=== PATIENT | male | born 2000 | race Caucasian/White ===

== ENCOUNTER 2018-03-14 12:48 | Emergency (ER) | payer MEDICAID, OTHER ==
[2018-03-14] MEDS: SOD CHLORIDE 0.9% 2,000 ML IV (14:04)
[2018-03-14 14:06] LABS: ADD MAN DIFF? NO
[2018-03-14 14:09] LABS: BASOPHIL # 0.1 10^3/ul (0.0-0.1); BASOPHILS % 0.6 % (0.0-2.0); EOSINOPHILS % 0.2 % (0.0-7.0); HEMATOCRIT 43.6 % (42.0-52.0); HEMOGLOBIN 15.5 g/dl (14.0-18.0); LYMPHOCYTES % 5.6 % (18.0-55.0); MEAN CORPUSCULAR HEMOGLOBIN 31.6 pg (29.0-33.0); MEAN CORPUSCULAR HGB CONC 35.6 g/dl (32.0-37.0); MEAN PLATELET VOLUME 9.1 fl (7.4-10.4); MONOCYTE # 0.4 10^3/ul (0.3-0.9); MONOCYTES % 2.2 % (0.0-13.0); NEUTROPHIL # 16.3 10^3/ul (1.6-7.5); NEUTROPHILS % 90.6 % (30.0-74.0); PLATELET COUNT 327 10^3/UL (140-415); RED CELL DISTRIBUTION WIDTH 11.6 % (11.5-14.5)
[2018-03-14] MEDS: ONDANSETRON 4 MG INJ IV (14:10)
[2018-03-14 14:21] LABS: ADD UMIC NO; UR ASCORBIC ACID NEGATIVE (NEGATIVE); UR BILIRUBIN (Dip) NEGATIVE (NEGATIVE); UR BLOOD (Dip) NEGATIVE (NEGATIVE); UR CLARITY CLEAR (CLEAR); UR COLOR COLORLESS (YELLOW); UR GLUCOSE (Dip) 3+ mg/dL (NEGATIVE); UR KETONES (Dip) 2+ mg/dL (NEGATIVE); UR LEUKOCYTE ESTERASE (Dip) NEGATIVE Leu/ul (NEGATIVE); UR NITRITE (Dip) NEGATIVE (NEGATIVE); UR SPECIFIC GRAVITY (Dip) 1.028 (1.003-1.030); UR TOTAL PROTEIN (Dip) NEGATIVE (NEGATIVE); UR UROBILINOGEN (Dip) NEGATIVE (NEGATIVE)
[2018-03-14 14:32] LABS: ANION GAP 28 (8-16); BLOOD UREA NITROGEN 18 mg/dl (7-20); CARBON DIOXIDE 18 mmol/L (21-31); CHLORIDE 101 mmol/L (97-110); CREATININE 0.92 mg/dl (0.61-1.24); POTASSIUM 4.9 mmol/L (3.5-5.1); SODIUM 142 mmol/L (135-144)
[2018-03-14 14:39] LABS: LACTIC ACID 3.7 mmol/L (0.5-2.0)
[2018-03-14 14:40] LABS: GLUCOSE 643 mg/dl (70-220)
[2018-03-14] MEDS ORDERED: ONDANSETRON 4 MG INJ IV (15:00)
[2018-03-14] MEDS ORDERED: DEXTROSE 50% 50 ML SYRINGE IV ×2 (15:00)
[2018-03-14] MEDS ORDERED: NACL 0.9% 3 ML SYG IV (15:00)
[2018-03-14] MEDS ORDERED: ACETAMINOPHEN 325 MG TAB PO (15:00)
[2018-03-14] MEDS: INSULIN LISPRO 100 UNIT/ML VIAL SC (15:08)
[2018-03-14] MEDS: LACTATED RINGER'S 1,000 ML IV (15:23)
[2018-03-14] MEDS: ACCU-CHEK XX ×3 (15:30→16:45)
[2018-03-14] MEDS: INSULIN HUMAN REGULAR 100 UNIT in SOD CHLORIDE 0.9% 99 ML IV (15:36)
[2018-03-14] MEDS ORDERED: LACTATED RINGER'S 1,000 ML IV (15:56)
[2018-03-14] MEDS: SOD CHLORIDE 0.9% 1,000 ML IV (16:47)
[2018-03-14 17:09] LABS: ANION GAP 25 (8-16); BLOOD UREA NITROGEN 17 mg/dl (7-20); CALCIUM 8.8 mg/dl (8.4-10.2); CARBON DIOXIDE 17 mmol/L (21-31); CHLORIDE 106 mmol/L (97-110); CREATININE 0.85 mg/dl (0.61-1.24); POTASSIUM 4.6 mmol/L (3.5-5.1); SODIUM 143 mmol/L (135-144)
[2018-03-14 17:21] LABS: GLUCOSE 426 mg/dl (70-220)
[2018-03-14 17:22] LABS: LACTIC ACID 3.3 mmol/L (0.5-2.0)
[2018-03-14] MEDS ORDERED: SOD CHLORIDE 0.9% 1,000 ML IV ×2 (17:30→19:30)
[2018-03-14 19:24] LABS: ANION GAP 18 (8-16); BLOOD UREA NITROGEN 16 mg/dl (7-20); CALCIUM 8.5 mg/dl (8.4-10.2); CARBON DIOXIDE 20 mmol/L (21-31); CHLORIDE 108 mmol/L (97-110); GLUCOSE 214 mg/dl (70-220); POTASSIUM 3.9 mmol/L (3.5-5.1); SODIUM 142 mmol/L (135-144)
[2018-03-14 19:25] LABS: LACTIC ACID 2.3 mmol/L (0.5-2.0)
[2018-03-14] MEDS: DEXTROSE 5%-0.45% NACL 1,000 ML IV ×2 (19:45→19:58)
[2018-03-14 21:53] LABS: ANION GAP 17 (8-16); BLOOD UREA NITROGEN 14 mg/dl (7-20); CALCIUM 8.8 mg/dl (8.4-10.2); CARBON DIOXIDE 22 mmol/L (21-31); CHLORIDE 106 mmol/L (97-110); CREATININE 0.77 mg/dl (0.61-1.24); GLUCOSE 173 mg/dl (70-220); POTASSIUM 3.8 mmol/L (3.5-5.1); SODIUM 141 mmol/L (135-144)
== END 2018-03-14 23:40 | disposition left against medical advice (07) ==
LOC: E/R 23:40
DX: E10.10 Type 1 diabetes mellitus with ketoacidosis without coma (principal); E10.65 Type 1 diabetes mellitus with hyperglycemia; F17.210 Nicotine dependence, cigarettes, uncomplicated; Z79.4 Long term (current) use of insulin
CPT/HCPCS: 36415; 80048; 81003; 82962; 83605; 85025; 96374; 96375; 99291-25

== ENCOUNTER 2018-11-06 14:36 | Emergency (ER) | payer OTHER ==
[2018-11-06 15:01] LABS: AADO2 Venous 63.7 mmHg; MODE ROOM AIR; MetHgb Venous 0.3 %; Sample Type Blood venous; Site OTHER; Venous COHb 0.8 %; Venous Fraction OxyHgb 80.9 %; Venous Oxygen Sat 81.8 mmHG (55.0-75.0); Venous Total Hemglobin 16.8 g/dl
[2018-11-06 15:05] LABS: ADD MAN DIFF? NO
[2018-11-06] MEDS: SOD CHLORIDE 0.9% 620 ML IV (15:06)
[2018-11-06 15:08] LABS: BASOPHILS % 0.3 % (0.0-2.0); EOSINOPHILS % 0.1 % (0.0-7.0); HEMOGLOBIN 16.3 g/dl (14.0-18.0); LYMPHOCYTES # 1.1 10^3/ul (0.8-2.9); LYMPHOCYTES % 10.4 % (18.0-55.0); MEAN CORPUSCULAR HGB CONC 35.4 g/dl (32.0-37.0); MEAN CORPUSCULAR VOLUME 90.2 fl (72.0-104.0); MEAN PLATELET VOLUME 8.4 fl (7.4-10.4); MONOCYTE # 0.3 10^3/ul (0.3-0.9); MONOCYTES % 3.1 % (0.0-13.0); NEUTROPHIL # 9.4 10^3/ul (1.6-7.5); NEUTROPHILS % 85.6 % (30.0-74.0); PLATELET COUNT 330 10^3/UL (140-415); RED CELL DISTRIBUTION WIDTH 11.4 % (11.5-14.5)
[2018-11-06] MEDS: ONDANSETRON 4 MG INJ IV (15:09)
[2018-11-06 15:29] LABS: ADD UMIC YES; UR ASCORBIC ACID NEGATIVE (NEGATIVE); UR BACTERIA FEW /HPF (NONE SEEN); UR BILIRUBIN (Dip) NEGATIVE (NEGATIVE); UR BLOOD (Dip) NEGATIVE (NEGATIVE); UR CLARITY CLEAR (CLEAR); UR COLOR YELLOW (YELLOW); UR GLUCOSE (Dip) 3+ mg/dL (NEGATIVE); UR KETONES (Dip) 2+ mg/dL (NEGATIVE); UR LEUKOCYTE ESTERASE (Dip) NEGATIVE Leu/ul (NEGATIVE); UR NITRITE (Dip) NEGATIVE (NEGATIVE); UR RBC 0 /HPF (0-5); UR SPECIFIC GRAVITY (Dip) 1.029 (1.003-1.030); UR TOTAL PROTEIN (Dip) 1+ mg/dl (NEGATIVE); UR UROBILINOGEN (Dip) NEGATIVE (NEGATIVE); UR WBC 0 /HPF (0-5)
[2018-11-06 15:44] LABS: ANION GAP 26 (5-13); BLOOD UREA NITROGEN 15 mg/dl (7-20); CALCIUM 10.3 mg/dl (8.4-10.2); CARBON DIOXIDE 16 mmol/L (21-31); CHLORIDE 98 mmol/L (97-110); CREATININE 0.81 mg/dl (0.61-1.24); Estimated GFR > 60 mL/min (>60); GLUCOSE 248 mg/dl (70-220); POTASSIUM 4.4 mmol/L (3.5-5.1); SODIUM 140 mmol/L (135-144)
[2018-11-06] MEDS ORDERED: DEXTROSE 10 %/0.45 % NACL 1,000 ML IV (15:57)
[2018-11-06] MEDS ORDERED: SOD CHLORIDE 0.9% 1,000 ML IV (15:57)
[2018-11-06] MEDS ORDERED: D10/0.45% NACL + KCL 40 MEQ 1,000 ML IV (15:57)
[2018-11-06] MEDS ORDERED: D10/0.45% NACL + KCL 30 MEQ 1,000 ML IV (15:57)
[2018-11-06] MEDS ORDERED: NS + KCL 30 MEQ 1,000 ML IV (15:57)
[2018-11-06] MEDS ORDERED: NS + KCL 40 MEQ 1,000 ML IV (15:57)
[2018-11-06] MEDS ORDERED: INSULIN REGULAR, HUMAN 100 UNIT in SOD CHLORIDE 0.9% 100 ML IV (16:00)
[2018-11-06] MEDS ORDERED: DEXTROSE 50% 50 ML SYRINGE IV ×2 (16:00)
[2018-11-06] MEDS: LACTATED RINGER S IV (16:05)
[2018-11-06 17:23] LABS: HEMOGLOBIN A1C 8.3 % (0-5.9)
== END 2018-11-06 16:19 | disposition left against medical advice (07) ==
LOC: E/R 14:36
DX: E10.10 Type 1 diabetes mellitus with ketoacidosis without coma (principal); E10.65 Type 1 diabetes mellitus with hyperglycemia; Z87.891 Personal history of nicotine dependence
CPT/HCPCS: 36415; 80048; 81001; 82803; 83036; 83735; 84100; 85025; 96374; 99284-25

== ENCOUNTER 2018-11-06 19:00 | Emergency (ER) | payer SELFPAY, OTHER | END 2018-11-06 21:00 | disposition left against medical advice (07) | LOC: E/R 19:00 | DX: Z53.21 Procedure and treatment not carried out due to patient leaving prior to being seen by health care provider (principal) ==